=== PATIENT | female | born 1975 | race Caucasian/White ===

== ENCOUNTER → 2020-08-08 | Outpatient (CLI) | payer BC ==
[2005-08-11 20:00] VITALS: TEMP 98.6
[~2020-08-08] MED LIST: FERROUS SULFAT325 M2 PO; MOTRIN 800800 MG/TAB PO; PRENATAL1 TA1 PO; SYNTHROID0.075 MG/T PO
== END ==
LOC: MC.RAD 14:40
DX: Z12.31 Encounter for screening mammogram for malignant neoplasm of breast (principal)